=== PATIENT | female | born 1995 | race African-American/Black ===

== ENCOUNTER 2021-03-22 13:55 | Outpatient (CLI) | payer BC, SELFPAY ==
--- NOTE | ~2021-03-22 | US_ITS ---
US breast RT limited 03/22/2021 14:32 Indication: Palpable right breast nodule Procedure: High-resolution ultrasound of the right breast Comparison: No prior studies for comparison. Findings: There is an oval hypoechoic mass at 6:00, 4 cm from the nipple measuring 6 x 7 x 4 mm with parallel orientation, no posterior features and no internal vascularity. There are no additional mass es of the right breast. Impression: 1: Probable benign oval hypoechoic right breast mass measuring 7 mm maximum dimension. BI-RADS CATEGORY 3-PROBABLY BENIGN FINDING RECOMMENDATION: Six-month follow-up right breast ultrasound recommended. Reviewed, dictated and finalized at location A. [employer] REPRESENTATIVE Impression: 1: Probable benign oval hypoechoic right breast mass measuring 7 mm maximum dim ension. BI-RADS CATEGORY 3-PROBABLY BENIGN FINDING RECOMMENDATION: Six-month follow-up right breast ultrasound recommended.
== END 2021-03-22 13:56 | disposition home or self-care (01) ==
LOC: ANHIMG 14:01
PROVIDERS: Visit Provider Obstetrics & Gynecology
DX: N64.4 Mastodynia (principal); R92.8 Other abnormal and inconclusive findings on diagnostic imaging of breast
CPT/HCPCS: 76642

== ENCOUNTER 2021-10-12 12:48 | Outpatient (CLI) | payer BC, SELFPAY ==
--- NOTE | ~2021-10-12 | US_ITS ---
US breast RT limited 10/12/2021 13:38 Indication: Follow-up right breast mass Procedure: High-resolution Limited ultrasound of the right breast Comparison: 03/22/2021 Findings: At 6:00, 4 cm from the nipple, there is an oval circumscribed hypoechoic mass measuring 8 x 7 x 3 mm with parallel orientation, no significant posterior features and no internal vascularity, w ithout significant change from prior study allowing for differences of technique. No other masses are identified. Impression: 1: Stable benign-appearing right breast mass located at 6:00, 4 cm from the nipple measuring 8 x 7 x 3 mm. BI-RADS CATEGORY 3-PROBABLY BENIGN FINDING RECOMMENDATION: Six-month follow-up bilateral mammogram and limited right breast ultrasound Reviewed, dictated and finalized at location A. Impression: 1: Stable benign-appearing right breast mass located at 6:00, 4 cm from the nip ple measuring 8 x 7 x 3 mm. BI-RADS CATEGORY 3-PROBABLY BENIGN FINDING RECOMMENDATION: Six-month follow-up bilateral mammogram and limited right breas t ultrasound
== END 2021-10-12 12:49 | disposition home or self-care (01) ==
PROVIDERS: Visit Provider Obstetrics & Gynecology
DX: N64.4 Mastodynia (principal); R92.8 Other abnormal and inconclusive findings on diagnostic imaging of breast
CPT/HCPCS: 76642

== ENCOUNTER 2023-07-14 13:27 | Outpatient (CLI) | payer BC, SELFPAY ==
--- NOTE | ~2023-07-14 | XR_ITS ---
EXAM: XR thoracic spine 2V DATE: 07/14/2023 13:50 HISTORY: Scoliosis . COMPARISON: 01/27/2006. FINDINGS: Moderate scoliosis. Vertebral body alignment intact. Vertebral body heights preserved. No d isc space narrowing. No traumatic malalignment or fracture. Visualized lung parenchyma is clear. IMPRESSION: Moderate scoliosis, worsened since the prior exam. Reviewed, dictated and finalized at location K.
--- NOTE | ~2023-07-14 | XR_ITS ---
EXAM: XR lumbar spine 2-3V DATE: 07/14/2023 13:51 HISTORY: Scoliosis . COMPARISON: None available. FINDINGS: Moderate thoracolumbar scoliosis. 5 nonrib-bearing lumbar-type vertebral bodies. Pedicles intact. Normal vertebral body alignment. Vertebral body heights preserved. Moderate narrowing at L5-S 1. Mild disc space narrowing at L4-5. Minimal multilevel marginal osteophytosis Normal facets and pos terior elements. No fracture or dislocation. IMPRESSION: Moderate scoliosis. Moderate degenerative disc disease at L5-S1. Reviewed, dictated and finalized at location K.
== END 2023-07-14 13:28 ==
DX: M41.85 Other forms of scoliosis, thoracolumbar region (principal); M51.37 Other intervertebral disc degeneration, lumbosacral region; G89.29 Other chronic pain
CPT/HCPCS: 72070; 72100